=== PATIENT | male | born 1950 | race Native Hawaiian/Other Pacific Islander ===

== ENCOUNTER 2022-01-29 09:37 | Outpatient (CLI) | payer OTHER | END 2022-01-29 20:42 | disposition home or self-care (01) | LOC: CT 09:37 | PROVIDERS: ATTEND Internal Medicine | DX: R10.31 Right lower quadrant pain (principal); R10.32 Left lower quadrant pain; R63.0 Anorexia | CPT/HCPCS: 36415; 82565; 84520; Q9963 ==